=== PATIENT | female | born 1985 | race Asian ===

== ENCOUNTER 2019-12-08 18:03 | Emergency (ER) | payer OTHER ==
[~2019-12-08] VITALS: Ht 152.4 cm; Wt 88.5 kg
[~2019-12-08 18:03] MED LIST: ALBU0.0967 IH; ASCO500T45 PO; BACL10TA4 PO; CALC-1086 PO; CETI-120 PO; CITA40TA13 PO; CYAN50TA PO; DOCU-299 PO; HYDR4TAB4 PO; IBUP-2213 PO; MOME0.051 NS; MULT-2410 PO; ONDA-24 PO; SYN.075 PO; TOPI50TA PO; [UNRECOGNIZED DRUG - CODE] PO; [UNRECOGNIZED DRUG - CODE] PO; [UNRECOGNIZED DRUG - CODE] PO
[2019-12-08 18:49] VITALS: BP 129/92
--- NOTE | 2019-12-08 18:57 | NUR ---
WAIT AT LOBBY.
--- NOTE | 2019-12-08 19:02 | NUR ---
PT AMBULATED TO BED 04
--- NOTE | 2019-12-08 19:09 | NUR ---
34 Y/O FEMALE PRESENTS WITH EPITAXIS SINCE 1600 TODAY. PT SAYS BLEEDING HAS BEEN ON/OFF BUT WILL NOT STOP. PT REPORTS CLOTS DURING NOSE BLEED. PT REPORTS STARTING TO FEEL LIGHTHEADED WITHIN THE LAST HOUR. DENIES SOB/ CP. AIRWAY REMAINS UNOBSTRUCTED. RESP EVEN AND UNLABORED. LUNG SOUNDS CLEAR IN BILAT LOBES. PMH: ENDOMETRIOSIS, DEPRESSION, ANXIETY ALLERGIES: HYDROCODONE, METHADONE
[2019-12-08 19:59] VITALS: BP 119/87
--- NOTE | 2019-12-08 20:00 | NUR ---
Patient discharged with v/s stable. Written and verbal after care instructions given and explained. Patient verbalized understanding. Ambulatory with steady gait. All questions addressed prior to discharge. Advised to follow up with PMD. DISCHARGED BY DR MASTERS
== END 2019-12-08 20:00 | disposition home or self-care (01) ==
LOC: MED 18:03
DX: R04.0 Epistaxis (principal); F32.9 Major depressive disorder, single episode, unspecified; F41.9 Anxiety disorder, unspecified; E03.9 Hypothyroidism, unspecified; Z88.5 Allergy status to narcotic agent; Z88.8 Allergy status to other drugs, medicaments and biological substances; Z79.899 Other long term (current) drug therapy
CPT/HCPCS: 99281